=== PATIENT | female | born 1980 | race American Indian/Alaskan Native ===

== ENCOUNTER 2016-07-01 13:16 | Emergency (ER) | payer MEDICAID ==
[2016-07-01] MEDS ORDERED: Sodium Chloride 0.9% 1,000 ML IV ONE (15:27)
[2016-07-01 16:07] LABS: BASO # 0.1 K/uL (0.0-0.2); EOS # 0.1 K/uL (0.0-0.7); EOS % 1.1 % (0.0-4.0); HEMATOCRIT 35.4 % (34.0-47.0); LYMPH # 3.4 K/uL (1.0-4.3); LYMPH % 53.8 % (20.0-40.0); MEAN CORPUSCULAR HEMOGLOBIN 27.9 pg (27.0-31.0); MEAN CORPUSCULAR HGB CONC 32.9 g/dL (33.0-37.0); MEAN PLATELET VOLUME 7.1 fL (7.2-11.7); MONO # 0.5 K/uL (0.0-0.8); MONO % 7.2 % (0.0-10.0); RED CELL DISTRIBUTION WIDTH 14.4 % (11.5-14.5); WHITE BLOOD COUNT 6.3 K/uL (4.8-10.8)
[2016-07-01 16:15] LABS: CHLORIDE 96 mmol/L (98-107); MEAN CELL VOLUME 84.6 fL (81.0-99.0)
[2016-07-01 16:16] LABS: POTASSIUM 4.7 mmol/L (3.6-5.2); SODIUM 135 mmol/L (132-148)
[2016-07-01 16:17] LABS: RBC URINE 5 /hpf (0-3); URINE BACTERIA OCC (<OCC); URINE BILIRUBIN NEGATIVE (NEGATIVE); URINE BLOOD TRACE (NEGATIVE); URINE COLOR Yellow (YELLOW); URINE GLUCOSE (UA) NORMAL (Normal); URINE KETONE TRACE mg/dL (NEGATIVE); URINE LEUKOCYTE ESTERASE TRACE Leu/uL (Negative); URINE PROTEIN NEGATIVE (NEGATIVE); URINE UROBILINOGEN NORMAL mg/dL (0.2-1.0); WBC URINE 6 /hpf (0-5)
[2016-07-01 16:19] LABS: BLOOD UREA NITROGEN 9 mg/dL (7-17); CALCIUM 9.2 mg/dl (8.6-10.4); CARBON DIOXIDE 25 mmol/L (22-30); GFR AFRICAN-AMERICAN > 60; GLUCOSE,RANDOM 93 mg/dL (65-105)
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
[2016-07-01 17:24] VITALS: BP 110/68; PULSE 74; RESP 18; TEMP 98.2
[2016-07-01 17:29] VITALS: O2SAT 100
== END 2016-07-01 18:33 | disposition home or self-care (01) ==
LOC: C.ER 13:16
DX: O9A.211 Injury, poisoning and certain other consequences of external causes complicating pregnancy, first trimester (principal); R10.2 Pelvic and perineal pain; Y04.2XXA Assault by strike against or bumped into by another person, initial encounter; Y92.009 Unspecified place in unspecified non-institutional (private) residence as the place of occurrence of the external cause; Z3A.01 Less than 8 weeks gestation of pregnancy
CPT/HCPCS: 76805; 76817; 80048; 81001; 84702; 85025; 99284; J7040

== ENCOUNTER 2016-07-05 13:22 | Emergency (ER) | payer MEDICAID ==
[2016-07-05 13:24] VITALS: BMI 24.6
[2016-07-05 13:26] VITALS: RESP 18
[2016-07-05 14:18] LABS: RBC URINE 10 /hpf (0-3); URINE BILIRUBIN NEGATIVE (NEGATIVE); URINE BLOOD NEGATIVE (NEGATIVE); URINE COLOR Yellow (YELLOW); URINE GLUCOSE (UA) NORMAL (Normal); URINE KETONE TRACE mg/dL (NEGATIVE); URINE LEUKOCYTE ESTERASE NEG Leu/uL (Negative); URINE PROTEIN 1+ mg/dL (NEGATIVE); URINE UROBILINOGEN NORMAL mg/dL (0.2-1.0); WBC URINE 1 /hpf (0-5)
[2016-07-05] MEDS ORDERED: Sodium Chloride 0.9% 1,000 ML IV STA (14:23)
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
[2016-07-05 15:58] LABS: BASO % 0.5 % (0.0-2.0); EOS # 0.1 K/uL (0.0-0.7); EOS % 1.3 % (0.0-4.0); HEMATOCRIT 30.3 % (34.0-47.0); LYMPH # 2.9 K/uL (1.0-4.3); LYMPH % 52.8 % (20.0-40.0); MEAN CELL VOLUME 83.7 fL (81.0-99.0); MEAN CORPUSCULAR HGB CONC 33.5 g/dL (33.0-37.0); MONO # 0.4 K/uL (0.0-0.8); MONO % 8.1 % (0.0-10.0); RED CELL DISTRIBUTION WIDTH 13.7 % (11.5-14.5); WHITE BLOOD COUNT 5.5 K/uL (4.8-10.8)
[2016-07-05 16:01] LABS: CHLORIDE 97 mmol/L (98-107); POTASSIUM 3.7 mmol/L (3.6-5.2); SODIUM 136 mmol/L (132-148)
[2016-07-05 16:03] LABS: ALKALINE PHOSPHATASE 48 U/L (38-126); ALT/SGPT 16 U/L (9-52); AST/SGOT 14 U/L (14-36); BILIRUBIN,TOTAL < 0.1 mg/dL (0.2-1.3); BLOOD UREA NITROGEN 9 mg/dL (7-17); CARBON DIOXIDE 27 mmol/L (22-30); GFR AFRICAN-AMERICAN > 60; TOTAL PROTEIN 7.2 g/dL (6.3-8.3)
[2016-07-05 16:04] LABS: CALCIUM 8.4 mg/dl (8.6-10.4); GLUCOSE,RANDOM 78 mg/dL (65-105)
[2016-07-05 17:11] VITALS: BP 118/69; PULSE 76; TEMP 98
[2016-07-05 17:19] VITALS: O2SAT 99
== END 2016-07-05 17:32 | disposition home or self-care (01) ==
LOC: C.ER 13:22
DX: O20.0 Threatened abortion (principal); Z3A.01 Less than 8 weeks gestation of pregnancy
CPT/HCPCS: 76817; 80053; 81001; 84702; 84703; 85025; 86850; 86900; 96360; 99283; J7040

== ENCOUNTER 2017-03-08 10:15 | Emergency (ER) | payer MEDICAID, OTHER ==
[2017-03-08 10:17] VITALS: BMI 24.6
[2017-03-08 11:43] LABS: BASO % 0.8 % (0.0-2.0); EOS # 0.1 K/uL (0.0-0.7); EOS % 2.5 % (0.0-4.0); HEMATOCRIT 34.2 % (34.0-47.0); LYMPH # 1.8 K/uL (1.0-4.3); LYMPH % 44.3 % (20.0-40.0); MEAN CELL VOLUME 84.4 fL (81.0-99.0); MEAN CORPUSCULAR HEMOGLOBIN 28.1 pg (27.0-31.0); MEAN CORPUSCULAR HGB CONC 33.3 g/dL (33.0-37.0); MONO # 0.3 K/uL (0.0-0.8); NRBC % 0.3 % (0.0-2.0); RED CELL DISTRIBUTION WIDTH 14.1 % (11.5-14.5); WHITE BLOOD COUNT 3.9 K/uL (4.8-10.8)
--- NOTE | 2017-03-08 12:02 | C.PDOC ---
History Of Present Illness 36-year-old female, x2 weeks, presents to the emergency department with complaints of pain in chest when she takes deep breaths and moves. Patient also notes a mild left sided headache. States she is also experiencing some bleeding from her nose, intermittently since she had her son. Denies any nausea/ vomiting, diarrhea, fevers, chills, or any other associated symptoms. No other complaints at this time. Time Seen by Provider: 03/08/17 10:59 Chief Complaint (Nursing): Chest Pain History Per: Patient History/Exam Limitations: no limitations Onset/Duration Of Symptoms: Days Current Symptoms Are (Timing): Still Present Severity: Moderate Past Medical History Reviewed: Historical Data, Nursing Documentation, Vital Signs Vital Signs: Last Vital Signs Temp 98.1 F 03/08/17 16:42 Pulse 67 03/08/17 16:42 Resp 20 03/08/17 16:42 BP 125/79 03/08/17 16:42 Pulse Ox 99 03/08/17 17:06 Surgical History: Hernia Repair Family History: States: No Known Family Hx - Social History Hx Alcohol Use: No Hx Substance Use: Yes (Marijuana) - Immunization History Hx Tetanus Toxoid Vaccination: Yes Hx Influenza Vaccination: No Hx Pneumococcal Vaccination: No Review Of Systems Except As Marked, All Systems Reviewed And Found Negative. Constitutional: Negative for: Fever, Chills Cardiovascular: Positive for: Chest Pain Respiratory: Negative for: Shortness of Breath Gastrointestinal: Negative for: Nausea, Vomiting Musculoskeletal: Positive for: Back Pain. Negative for: Neck Pain Neurological: Positive for: Headache. Negative for: Weakness, Numbness, Dizziness Physical Exam - Physical Exam Appears: Non-toxic, No Acute Distress Skin: Warm, Dry, No Rash Head: Atraumatic, Normacephalic Eye(s): bilateral: Normal Inspection, PERRL, EOMI Ear(s): Bilateral: Normal Nose: Normal, No Epistaxis Oral Mucosa: Moist Lips: Normal Appearing Throat: No Erythema, No Exudate Neck: Normal ROM, No Midline Cervical Tenderness, No Paracervical Tenderness, Supple Chest: Symmetrical, Tenderness (left-sided anterior chest) Cardiovascular: Rhythm Regular, No Friction Rub, No Murmur Respiratory: Normal Breath Sounds, No Accessory Muscle Use, No Rales, No Rhonchi , No Wheezing Gastrointestinal/Abdominal: Soft, No Tenderness Back: Normal Inspection, No CVA Tenderness Extremity: Normal ROM, No Swelling Neurological/Psych: Oriented x3, Normal Speech, Normal Motor Gait: Steady ED Course And Treatment - Laboratory Results Result Diagrams: 03/08/17 11:26 03/08/17 11:26 O2 Sat by Pulse Oximetry: 99 (on RA) Pulse Ox Interpretation: Normal - Radiology CXR: Interpreted by Me CXR Interpretation: Yes: No Acute Disease. No: Infiltrates Progress Note: On first re-exam, the patient reports that she still has chest pain. Chest CT ordered. The UA is negative for protein and BP is decreasing which is less likely for pre-eclampsia. CT chest results were negative for PE and the other findings were discussed with the patient. On second re-exam, the patient reports improvement of symptoms. Lungs are CTA, heart is RRR, abdomen is soft, non-tender, and patient is tolerating PO well.. Ambulatory in the ED with steady gait. Follow up with the medical doctor within 1-2 days. Return if worsened. Disposition - Disposition Referrals: [facility] [Outside] Disposition: HOME/ ROUTINE Disposition Time: 17:04 Condition: GOOD Additional Instructions: Follow up with the medical doctor within 1-2 days. Return if worsened. Prescriptions: Ibuprofen [Motrin] 600 mg PO TID #21 tab Instructions: Costochondritis (ED) Forms: [facility] (Bolivian) - Clinical Impression Clinical Impression: Chest pain, Costochondritis, Epistaxis - Scribe Statement The provider has reviewed the documentation as recorded by the Scribe (Jarvis King) All medical record entries made by the Scribe were at my direction and personally dictated by me. I have reviewed the chart and agree that the record accurately reflects my personal performance of the history, physical exam, medical decision making, and the department course for this patient. I have also personally directed, reviewed, and agree with the discharge instructions and disposition.
[2017-03-08 12:08] LABS: ALB/GLOB RATIO 0.9 (1.0-2.1); ALKALINE PHOSPHATASE 98 U/L (38-126); ALT/SGPT 29 U/L (9-52); AST/SGOT 27 U/L (14-36); BILIRUBIN,TOTAL 0.6 mg/dL (0.2-1.3); BLOOD UREA NITROGEN 12 mg/dL (7-17); CALCIUM 8.5 mg/dl (8.6-10.4); CARBON DIOXIDE 27 mmol/L (22-30); CHLORIDE 102 mmol/L (98-107); GFR AFRICAN-AMERICAN > 60; GLUCOSE,RANDOM 73 mg/dL (65-105); POTASSIUM 3.8 mmol/L (3.6-5.2); SODIUM 138 mmol/L (132-148); TOTAL PROTEIN 7.4 g/dL (6.3-8.3)
[2017-03-08 12:46] LABS: RBC URINE 1 /hpf (0-3); URINE BILIRUBIN NEGATIVE (NEGATIVE); URINE BLOOD NEGATIVE (NEGATIVE); URINE COLOR Yellow (YELLOW); URINE GLUCOSE (UA) NORMAL (Normal); URINE KETONE NEGATIVE (NEGATIVE); URINE LEUKOCYTE ESTERASE 3+ Leu/uL (Negative); URINE PROTEIN NEGATIVE (NEGATIVE); URINE UROBILINOGEN NORMAL mg/dL (0.2-1.0); WBC URINE 20 /hpf (0-5)
--- NOTE | 2017-03-08 13:15 | RAD ---
HISTORY: chest and upper back pain COMPARISON: Comparison chest 05/13/2015 theNo prior. TECHNIQUE: Chest PA and lateral FINDINGS: LUNGS: No active pulmonary disease. PLEURA: No significant pleural effusion identified. No pneumothorax apparent. CARDIOVASCULAR: Heart size upper limits of normal. OSSEOUS STRUCTURES: No significant abnormalities. VISUALIZED UPPER ABDOMEN: Normal. OTHER FINDINGS: None. IMPRESSION: No active disease.
[2017-03-08] MEDS ORDERED: Iodixanol 320 MG/ML 100 ML BOTTLE IV ONE (15:57)
[2017-03-08 16:43] VITALS: BP 125/79; PULSE 67; RESP 20; TEMP 98.1
--- NOTE | 2017-03-08 16:50 | CT ---
PROCEDURE: CT Chest with contrast (Pulmonary Angiogram) HISTORY: chest pain, pleuritic pain COMPARISON: None available. TECHNIQUE: Axial computed tomography images were obtained of the chest in the pulmonary arterial phase of enhancement. Coronal and sagittal reformatted images were created and reviewed. Intravenous contrast dose: 100 cc Visipaque 320 Radiation dose: Total exam DLP = 504.4 mGy-cm. This CT exam was performed using one or more of the following dose reduction techniques: Automated exposure control, adjustment of the mA and/or kV according to patient size, and/or use of iterative reconstruction technique. FINDINGS: PULMONARY ARTERIES: The visualized portions of the pulmonary trunk, right and left main, lobar, segmental and subsegmental branches of the pulmonary arteries are well opacified with no definitive filling defects seen to suggest acute pulmonary embolus. Pulmonary trunk measures approximately 3.58 cm. Rule out underlying mild pulmonary arterial hypertension. AORTA: No acute findings. No thoracic aortic aneurysm. Ascending thoracic aorta measures approximate 3.2 cm and descending thoracic aorta measures approximately 3.55 cm. LUNGS: Passive type atelectasis/ ground-glass opacities are present in the posterior leal most pronounced in the lower lung leal suggesting some air trapping. There also appears to be areas of atelectasis in both lower lung leal including what appears represent some minor linear scarring in the right middle lobe region. There is a small subpleural nodule measuring 4.5 mm in the middle lobe along the anterolateral convexity. . There is a small approximately 3.3 mm nodule superior segment left lower lobe near the mid superior margin of the major fissure. . Another approximately 5.3 mm elliptical shaped nodule lateral aspect superior segment left lower lobe near the junction of the fissure and pleural surface. An additional small approximately 5.6 mm elliptical shaped nodular density seen left lower lobe slightly more inferiorly located abutting major fissure. Localized triangular-shaped area of atelectasis, scarring or pleural thickening right upper lobe of bordering the lateral aspect superior margin of the major fissure. PLEURAL SPACES: Unremarkable. No effusion or pneumothorax HEART: Heart is enlarged. No significant pericardial effusion. LYMPH NODES: Central airways are midline and patent. No significant mediastinal or hilar adenopathy. BONES, CHEST WALL: Minor multilevel degenerative spondylosis of the thoracic spine. OTHER FINDINGS: Unremarkable. IMPRESSION: No evidence of acute central pulmonary embolus. Rule out underlying pulmonary arterial hypertension as described. Cardiomegaly. Small bilateral nodular densities seen in the right middle lobe and left lower lower lobes as above. Followup CT scan 6 months recommended to assess stability. . Ground-glass opacities and atelectasis in the posterior lung leal particularly prominent in the lower lung zones. Scattered areas scarring in the upper and lower lobes also present.
[2017-03-08 17:06] VITALS: O2SAT 99
--- NOTE | 2017-03-09 17:50 | CARD ---
APPROVED REPORT EKG Measurement Heart [id number] <Conclusion> Normal sinus rhythm Left anterior fascicular block Cannot rule out Anterior infarct, age undetermined Abnormal ECG
== END 2017-03-08 17:15 | disposition home or self-care (01) ==
LOC: C.ER 10:15
DX: M94.0 Chondrocostal junction syndrome [Tietze] (principal); R07.9 Chest pain, unspecified; R04.0 Epistaxis
CPT/HCPCS: 71020; 71275; 80053; 81001; 84484; 84703; 85025; 87086; 93005; 96374; 99285; J1885; Q9967

== ENCOUNTER 2017-07-30 21:12 | Emergency (ER) | payer MEDICAID, OTHER ==
[2017-07-30 21:12] VITALS: BMI 24.6
[2017-07-30 21:22] VITALS: TEMP 97.9
[2017-07-30 22:05] LABS: SQUAMOUS EPITHIAL 2 /hpf (0-5); URINE BILIRUBIN NEGATIVE (NEGATIVE); URINE BLOOD NEGATIVE (NEGATIVE); URINE CLARITY Hazy (Clear); URINE COLOR Yellow (YELLOW); URINE GLUCOSE (UA) NORMAL (Normal); URINE LEUKOCYTE ESTERASE NEG Leu/uL (Negative); URINE PROTEIN NEGATIVE (NEGATIVE); URINE UROBILINOGEN NORMAL mg/dL (0.2-1.0)
[2017-07-30 22:13] LABS: BASO % 0.4 % (0.0-2.0); EOS # 0.1 K/uL (0.0-0.7); EOS % 1.8 % (0.0-4.0); HEMOGLOBIN 12.5 g/dL (11.0-16.0); LYMPH # 2.8 K/uL (1.0-4.3); LYMPH % 53.5 % (20.0-40.0); MEAN CORPUSCULAR HEMOGLOBIN 27.9 pg (27.0-31.0); MEAN CORPUSCULAR HGB CONC 34.1 g/dL (33.0-37.0); MEAN PLATELET VOLUME 8.1 fL (7.2-11.7); MONO # 0.3 K/uL (0.0-0.8); MONO % 5.6 % (0.0-10.0); NEUT # 2.1 K/uL (1.8-7.0); NEUT % 38.7 % (50.0-75.0); RBC 4.47 Mil/uL (3.80-5.20); RED CELL DISTRIBUTION WIDTH 16.4 % (11.5-14.5); WHITE BLOOD COUNT 5.3 K/uL (4.8-10.8)
[2017-07-30 22:14] LABS: MEAN CELL VOLUME 81.7 fL (81.0-99.0)
--- NOTE | 2017-07-30 22:47 | C.PDOC ---
History Of Present Illness Patient is a 37 y/o F with hx of hernia repair, presenting with suprapubic pain and vaginal discharge. She denies vomiting, diarrhea/constipation, or dysuria. Time Seen by Provider: 07/30/17 21:53 Chief Complaint (Nursing): Abdominal Pain Past Medical History Vital Signs: Last Vital Signs Temp 97.9 F 07/30/17 21:17 Pulse 85 07/30/17 21:17 Resp 18 07/30/17 21:17 BP 108/77 07/30/17 21:17 Pulse Ox 100 07/30/17 23:50 Surgical History: Hernia Repair - Social History Hx Alcohol Use: No Hx Substance Use: Yes (Marijuana) - Immunization History Hx Tetanus Toxoid Vaccination: Yes Hx Influenza Vaccination: No Hx Pneumococcal Vaccination: No Review Of Systems Constitutional: Negative for: Fever Cardiovascular: Negative for: Chest Pain, Palpitations Respiratory: Negative for: Cough, Shortness of Breath, SOB with Excertion, Wheezing Gastrointestinal: Positive for: Abdominal Pain (suprapubic). Negative for: Nausea, Vomiting, Diarrhea, Constipation Genitourinary: Positive for: Vaginal Discharge. Negative for: Dysuria Skin: Negative for: Rash, Lesions Neurological: Negative for: Weakness, Incoordination Physical Exam - Physical Exam Appears: Well, Non-toxic, No Acute Distress Skin: Normal Color, Warm, Dry Head: Atraumatic, Normacephalic Eye(s): bilateral: Normal Inspection, PERRL, EOMI Neck: Normal ROM, Supple Chest: Symmetrical Cardiovascular: Rhythm Regular Respiratory: Normal Breath Sounds Gastrointestinal/Abdominal: Normal Exam, Soft, No Tenderness, No Distention Back: Normal Inspection, No CVA Tenderness Pelvic: Normal External Exam, Vaginal Discharge (white), No Cervical Motion Tenderness, No Cervix Open, No Adnexal Tenderness, Other (chaperoned by Hone and StropPresentationTube) Extremity: Normal ROM Neurological/Psych: Oriented x3 ED Course And Treatment - Laboratory Results Result Diagrams: 07/30/17 22:09 07/30/17 22:42 O2 Sat by Pulse Oximetry: 100 Medical Decision Making Medical Decision Making: UA negative. Labs significant for multiple electrolyte abnormalities- low potassium and calcium. Patient denies vomiting but reports that she has not been eating much recently because she is caring for a new baby. She reports remote history of diarrhea that has now resolved. Electrolytes repleted and instructed on the importance of better diet. Pelvic exam consistent with yeast infection and discharged with monistat Disposition - Disposition Referrals: Non [facility] Provider, [Primary Care Provider] - Disposition Time: 23:25 Condition: GOOD Additional Instructions: Eat a complete and balanced diet. Return to ED if condition worsens. Follow- up with your PMD within 2 days for further evaluation. Use monistat 3 for yeast infection Prescriptions: Miconazole/Cleanser 17 On Wipe [Monistat 3 Combo Pack] 1 each VG HS #1 kit Instructions: Hypokalemia, Hypocalcemia, Yeast Infection (DC) Forms: [facility] (Latvian) - Clinical Impression Clinical Impression: Hypokalemia, Hypocalcemia, Yeast infection
[2017-07-30 23:02] LABS: ALB/GLOB RATIO 0.9 (1.0-2.1); ALT/SGPT 13 U/L (9-52); AST/SGOT 13 U/L (14-36); BLOOD UREA NITROGEN 8 mg/dL (7-17); CALCIUM 6.8 mg/dl (8.6-10.4); GFR AFRICAN-AMERICAN > 60; GFR NON-AFRICAN AMERICAN > 60; LIPASE 64 U/L (23-300)
[2017-07-30] MEDS ORDERED: Potassium Chloride 20 mEq ER Tab PO STA (23:03)
[2017-07-30] MEDS ORDERED: Calcium Gluconate 4.65 mEq/10 ml Inj IVP STA (23:04)
[2017-07-30] MEDS ORDERED: Potassium Chloride 20 mEq 100 ML ONE (23:33)
[2017-07-31] MEDS ORDERED: Potassium Chloride 20 mEq ER Tab PO ONE (00:48)
[2017-07-31] MEDS ORDERED: Calcium Gluconate 4.65 mEq/10 ml Inj ONE (00:48)
[2017-07-31 02:29] VITALS: BP 120/80; PULSE 70; RESP 14; O2SAT 99
== END 2017-07-31 02:28 | disposition home or self-care (01) ==
LOC: C.ER 21:12 → SUPCPDRO 21:12 → C.ER 07-31 02:28
DX: E87.6 Hypokalemia (principal); E83.51 Hypocalcemia; B37.9 Candidiasis, unspecified
CPT/HCPCS: 80053; 81001; 83690; 84703; 85025; 96374; 96375; 99284; J0610; J1885; J3480

== ENCOUNTER 2017-08-16 23:26 | Emergency (ER) | payer MEDICAID ==
[2017-08-16 23:26] VITALS: BMI 24.6
[2017-08-16 23:33] VITALS: O2SAT 100
[2017-08-17 00:20] VITALS: BP 126/78; PULSE 66; RESP 18; TEMP 98.1
--- NOTE | 2017-08-17 00:20 | C.PDOC ---
History Of Present Illness 37 year old female presents to the ER with a complaint a bilateral tooth ache for the past 3 days that is worse today. Patient states she has begun to notice swelling to the right side. Patient has been told she needs dental work done but as not been compliant with following up. Patient has not taken anything for the pain. Denies tooth discharge or fever. Time Seen by Provider: 08/16/17 23:42 Chief Complaint (Nursing): Dental Pain History Per: Patient History/Exam Limitations: no limitations Onset/Duration Of Symptoms: Days Current Symptoms Are (Timing): Still Present Recent travel outside of the [place]: No Past Medical History Reviewed: Historical Data, Nursing Documentation, Vital Signs Vital Signs: Last Vital Signs Temp 98.1 F 08/17/17 00:18 Pulse 66 08/17/17 00:18 Resp 18 08/17/17 00:18 BP 126/78 08/17/17 00:18 Pulse Ox 100 08/17/17 00:21 Surgical History: Hernia Repair Family History: States: Unknown Family Hx - Social History Hx Alcohol Use: No Hx Substance Use: No (Marijuana) - Immunization History Hx Tetanus Toxoid Vaccination: No Hx Influenza Vaccination: No Hx Pneumococcal Vaccination: No Review Of Systems Constitutional: Negative for: Fever ENT: Positive for: Throat Pain. Negative for: Other (Tooth discharge) Physical Exam - Physical Exam Appears: Non-toxic Skin: Normal Color, Warm, Dry Head: Atraumatic, Normacephalic, Swelling (Mandibular) Eye(s): bilateral: Normal Inspection Oral Mucosa: Moist Tongue: Normal Appearing Lips: Normal Appearing Teeth: Other (Dental caries with tooth decay, decayed roots still attached to gums) Gingiva: No Ulceration, Tender, No Bleeding Throat: Normal, No Erythema, No Exudate ED Course And Treatment O2 Sat by Pulse Oximetry: 100 (room air) Pulse Ox Interpretation: Normal Progress Note: Motrin and penicillin administered. Patient reports improvement of pain, she is resting comfortably in no acute distress, will discharge home with Rx and instructions to follow up with dentist. Disposition Counseled Patient/Family Regarding: Diagnosis, Need For Followup, Rx Given - Disposition Disposition: HOME/ ROUTINE Disposition Time: 00:17 Condition: STABLE Additional Instructions: Please follow up with dentist in AM Avoid very cold and hot drinks Return to ER if worse Prescriptions: Ibuprofen [Motrin Tab] 800 mg PO QID #20 tab Penicillin VK [Pen-Vee K] 2 tab PO BID #28 tab Instructions: Tooth Decay, Adult (DC) Forms: [employer] (British) - Clinical Impression Clinical Impression: Dental caries - PA / LINE WELDER / Resident Statement MD/DO has reviewed & agrees with the documentation as recorded. - Scribe Statement The provider has reviewed the documentation as recorded by the Scribe Alessio Hendricks All medical record entries made by the Scribe were at my direction and personally dictated by me. I have reviewed the chart and agree that the record accurately reflects my personal performance of the history, physical exam, medical decision making, and the department course for this patient. I have also personally directed, reviewed, and agree with the discharge instructions and disposition.
== END 2017-08-17 00:28 | disposition home or self-care (01) ==
LOC: C.ER 23:26
DX: K02.9 Dental caries, unspecified (principal)

== ENCOUNTER 2017-08-31 21:48 | Emergency (ER) | payer MEDICAID ==
[2017-08-31 21:48] VITALS: BMI 24.6
[2017-08-31 22:18] VITALS: RESP 20
[2017-08-31] MEDS ORDERED: Alum-Mag Hydrox-Simethicone Susp (30 mL) PO STA (23:08)
[2017-08-31] MEDS ORDERED: Alum-Mag Hydrox-Simethicone Susp (30 mL) ONE (23:22)
[2017-08-31 23:27] LABS: BASO % 0.9 % (0.0-2.0); EOS # 0.1 K/uL (0.0-0.7); EOS % 1.9 % (0.0-4.0); HEMOGLOBIN 11.9 g/dL (11.0-16.0); LYMPH # 2.4 K/uL (1.0-4.3); LYMPH % 44.9 % (20.0-40.0); MEAN CELL VOLUME 83.2 fL (81.0-99.0); MEAN CORPUSCULAR HEMOGLOBIN 28.4 pg (27.0-31.0); MEAN CORPUSCULAR HGB CONC 34.1 g/dL (33.0-37.0); MEAN PLATELET VOLUME 8.1 fL (7.2-11.7); MONO # 0.3 K/uL (0.0-0.8); MONO % 6.2 % (0.0-10.0); NEUT # 2.5 K/uL (1.8-7.0); NEUT % 46.1 % (50.0-75.0); NRBC % 0.1 % (0.0-2.0); RBC 4.18 Mil/uL (3.80-5.20); RED CELL DISTRIBUTION WIDTH 15.4 % (11.5-14.5); WHITE BLOOD COUNT 5.3 K/uL (4.8-10.8)
[2017-08-31 23:40] LABS: CALCIUM 9.3 mg/dl (8.6-10.4); GFR AFRICAN-AMERICAN > 60; GFR NON-AFRICAN AMERICAN > 60; LIPASE 82 U/L (23-300)
[2017-08-31 23:41] LABS: ALB/GLOB RATIO 0.9 (1.0-2.1); ALBUMIN 3.9 g/dL (3.5-5.0); ALT/SGPT 18 U/L (9-52); AST/SGOT 25 U/L (14-36); BLOOD UREA NITROGEN 16 mg/dL (7-17)
[2017-09-01 00:11] LABS: SQUAMOUS EPITHIAL 22 /hpf (0-5); URINE BACTERIA RARE (<OCC); URINE BILIRUBIN NEGATIVE (NEGATIVE); URINE BLOOD NEGATIVE (NEGATIVE); URINE CLARITY Hazy (Clear); URINE COLOR Yellow (YELLOW); URINE GLUCOSE (UA) NORMAL (Normal); URINE LEUKOCYTE ESTERASE 2+ Leu/uL (Negative); URINE PROTEIN NEGATIVE (NEGATIVE); URINE UROBILINOGEN NORMAL mg/dL (0.2-1.0)
[2017-09-01 00:12] LABS: HCG,QUALITATIVE URINE NEGATIVE (NEGATIVE)
--- NOTE | 2017-09-01 00:33 | C.PDOC ---
History Of Present Illness Pt with c/o epigastric pain, vomiting, diarrhea x 2 days. Denies fever, no known food association, UTI sx, recent travel or sick contact Time Seen by Provider: 08/31/17 22:53 Chief Complaint (Nursing): Abdominal Pain History Per: Patient History/Exam Limitations: no limitations Onset/Duration Of Symptoms: Gradual Current Symptoms Are (Timing): Still Present Severity: Moderate Location Of Pain/Discomfort: Epigastric Radiation Of Pain To:: Back Quality Of Discomfort: Burning Associated Symptoms: Nausea. denies: Fever, Vomiting, Diarrhea, Constipation, Urinary Symptoms Exacerbating Factors: denies: Food, Walking Last Bowel Movement: Yesterday Recent travel outside of the [place]: No Past Medical History Vital Signs: Last Vital Signs Temp 98.1 F 09/01/17 00:59 Pulse 67 09/01/17 00:59 Resp 20 09/01/17 00:59 BP 140/88 09/01/17 00:59 Pulse Ox 98 09/01/17 04:31 - Medical History PMH: No Chronic Diseases Surgical History: Hernia Repair Family History: States: Unknown Family Hx - Social History Hx Alcohol Use: No Hx Substance Use: No (Marijuana) - Immunization History Hx Tetanus Toxoid Vaccination: No Hx Influenza Vaccination: No Hx Pneumococcal Vaccination: No Review Of Systems Constitutional: Negative for: Fever Gastrointestinal: Positive for: Nausea, Vomiting, Abdominal Pain Physical Exam - Physical Exam Appears: Well, Non-toxic, No Acute Distress Skin: Normal Color Eye(s): bilateral: Normal Inspection, PERRL Respiratory: Normal Breath Sounds Gastrointestinal/Abdominal: Normal Exam, Bowel Sounds, Soft, Tenderness ( epigastric), No Distention, No Guarding Back: No CVA Tenderness Extremity: Normal ROM Neurological/Psych: Oriented x3 Gait: Steady ED Course And Treatment - Laboratory Results Result Diagrams: 08/31/17 23:23 08/31/17 23:23 Urine POC: Negative O2 Sat by Pulse Oximetry: 98 Pulse Ox Interpretation: Normal Progress Note: Pt reportsi improved pain after meds. Labs and Ua reviewed and RX shay UTI and return precautions discussed Disposition Counseled Patient/Family Regarding: Diagnosis, Need For Followup, Rx Given - Disposition Referrals: Abisai Galvan MD [Medical Doctor] - Disposition: HOME/ ROUTINE Disposition Time: 00:29 Condition: STABLE Additional Instructions: Please follow up with PMD Return to ER if worse Prescriptions: Aluminum Hydroxide/Magnesium H [Maalox 30 ml] 30 ml PO TID #100 ml Nitrofurantoin Macrocrystals [Macrobid] 1 cap PO BID #14 cap Instructions: Urinary Tract Infection, Adult (DC), Viral Gastroenteritis, Adult (DC) Forms: [employer] (Salvadorean) - Clinical Impression Clinical Impression: Urinary tract infection, Gastroenteritis
[2017-09-01 01:00] VITALS: BP 140/88; PULSE 67; TEMP 98.1
[2017-09-01 04:29] VITALS: O2SAT 98
== END 2017-09-01 01:13 | disposition home or self-care (01) ==
LOC: C.ER 21:48
DX: N39.0 Urinary tract infection, site not specified (principal); K52.9 Noninfective gastroenteritis and colitis, unspecified

== ENCOUNTER 2018-05-07 20:25 | Emergency (ER) | payer MEDICAID ==
[2018-05-07 20:25] VITALS: BMI 24.6
[2018-05-07 20:39] VITALS: BP 128/79; PULSE 78; RESP 18; TEMP 98.7; O2SAT 99
--- NOTE | 2018-05-07 21:00 | C.PDOC ---
History Of Present Illness 37 yo female BIBA for evaluation of Right hip pain gradually developed since yesterday " was walking and after have heard some pop in my hip, pain started". Pt denies fall, denies previous Right hip injury or surgery, denies fever, chills, abd, pain, N/V, back pain, UTi sx, denies deformity, weakness, sensory or vascular deficit to Right leg. Noted able to ambulate in ED, favoring Right leg Time Seen by Provider: 05/07/18 20:34 Chief Complaint (Nursing): Hip Pain History Per: Patient Past Medical History Reviewed: Historical Data, Nursing Documentation, Vital Signs Vital Signs: Last Vital Signs Temp 98.7 F 05/07/18 20:36 Pulse 78 05/07/18 20:36 Resp 18 05/07/18 20:36 BP 128/79 05/07/18 20:36 Pulse Ox 99 05/07/18 20:36 - Medical History PMH: No Chronic Diseases Surgical History: Hernia Repair Family History: States: Unknown Family Hx - Social History Hx Tobacco Use: Yes Hx Alcohol Use: No Hx Substance Use: Yes (Marijuana) - Immunization History Hx Tetanus Toxoid Vaccination: No Hx Influenza Vaccination: No Hx Pneumococcal Vaccination: No Review Of Systems Except As Marked, All Systems Reviewed And Found Negative. Constitutional: Negative for: Fever, Chills Gastrointestinal: Negative for: Nausea, Vomiting, Abdominal Pain, Diarrhea Genitourinary: Negative for: Dysuria, Incontinence Musculoskeletal: Positive for: Other (Right hip). Negative for: Neck Pain, Back Pain Skin: Negative for: Rash, Lesions, Bruising Neurological: Negative for: Weakness, Numbness, Altered Mental Status, Headache, Dizziness Physical Exam - Physical Exam Appears: Well, Non-toxic, No Acute Distress Skin: Normal Color, Warm Head: Normacephalic Gastrointestinal/Abdominal: Soft, No Tenderness, No Distention, No Guarding, No Rebound Back: No CVA Tenderness, No Vertebral Tenderness Extremity: Normal ROM (discofmort to Right hip due to pain), Tenderness (diffuse over right hip, no palpable deformity, no skin changes.), No Deformity, No Swelling Neurological/Psych: Oriented x3, Normal Speech, Normal Motor, Normal Sensation, Normal Reflexes ED Course And Treatment O2 Sat by Pulse Oximetry: 99 Pulse Ox Interpretation: Normal - Other Rad Right hip, pelvis X-Ray: Interpreted by Me, Viewed By Me Interpretation: (-) acute fx or dislocation Progress Note: On re-eval, pt is afebrile, hemodynamicaly stable. Non-toxic. AMbulatoyr in ED. Head: AT/NC. Abd: benign. Right hip: FAROM, no neurovascular deficits. Imaging review and appears normal. Pt has clinical findings c/w Right hip strain. Pt advised and ref. to f/u with Ortho in 2-3 days for re-eval. return if any new changes. Disposition Counseled Patient/Family Regarding: Studies Performed, Diagnosis, Need For Followup, Rx Given - Disposition Referrals: Velasquez Beaver III, MD [Staff Provider] - [facility] [Outside] Disposition: HOME/ ROUTINE Disposition Time: 21:41 Condition: STABLE Additional Instructions: Ice Take medication as need Avoid prolong walking for 1-2 days Follow up with orthopedist in2 -3 days for re-evaluation. Return to ED if any worsening or new changes. Prescriptions: traMADol [Ultram] 50 mg PO TID #5 tab Instructions: Hip Pain Forms: [employer] (Honduran) - Clinical Impression Clinical Impression: Hip pain
--- NOTE | 2018-05-08 09:17 | RAD ---
Pelvis and right hip two views HISTORY: Pain. Comparison none available. Findings: No evidence of acute displaced fracture or dislocation. Hip joints are preserved. Probable small bone island within the left iliac bone near the acetabulum. Calcified phleboliths in the pelvis. Impression: Negative acute. If pain persists, consider MRI.
== END 2018-05-07 21:45 | disposition home or self-care (01) ==
LOC: C.ER 20:25
DX: M25.551 Pain in right hip (principal)
CPT/HCPCS: 73502; 81025; 96372; 99284; J1885